=== PATIENT | female | born 1960 | race Caucasian/White ===

== ENCOUNTER → 2018-01-17 23:55 | Outpatient (CLI) | payer OTHER ==
[2015-10-06 09:27] VITALS: BMI 23.2
== END | disposition home or self-care (01) ==
LOC: D.MAMMO 14:30
DX: Z12.31 Encounter for screening mammogram for malignant neoplasm of breast (principal)

== ENCOUNTER → 2018-07-07 08:20 | Outpatient (CLI) | payer OTHER ==
[2015-10-06 09:27] VITALS: BMI 23.2
== END | disposition home or self-care (01) ==
LOC: D.MRI 06-20 16:00
DX: M54.12 Radiculopathy, cervical region (principal)

== ENCOUNTER 2019-01-15 07:40 | Day surgery (SDC) | payer OTHER ==
[2019-01-14 09:49] LABS: HEMATOCRIT 37.7 % (36.0-48.0); HEMOGLOBIN 13.5 g/dL (12-16); MCH 32.1 pg (26.0-34.0); MCHC 35.8 g/dL (31.0-37.0); MCV 89.8 fL (80.0-100.0); MEAN PLATELET VOLUME 11.2 fL (7.4-10.4); RBC 4.2 10x6/uL (4.00-5.40); RDW 11.7 % (11.5-14.5); WBC 4.5 10x3/uL (4.8-10.8)
[2019-01-15] VITALS (14 sets, daily range): BP systolic 93–132; BP diastolic 50–79; BMI 23.5; BMI 22.9
[~2019-01-15 07:40] MED LIST: LIPITOR10 MG PO; MIRALAX17 GM PO; ZYLOPRIM100 MG PO
--- NOTE | 2019-01-15 15:40 | NUR ---
RECEIVED PATIENT AT THIS TIME. PT DROWSY BUT WAKES EASILY. HOOKED UP TO MONITOR. VSS. WILL CHECK ORDERS AND CONTINUE TO MONITOR
--- NOTE | 2019-01-15 17:00 | NUR ---
PT RESTING IN BED C CALL FLANNERY IN REACH. NO COMPLAINTS. FAMILY IN ROOM. AWAKE ALERT WITH VSS
--- NOTE | 2019-01-15 19:55 | NUR ---
REC'D AWAKE BUT DROWSY. INITIAL ASSESSMENT COMPLETED AND RECORDED PER FLOW SHEET. LUNGS CLEAR RIMA. INCISION TO BASE OF NECK, C/D/I, SLIGHT BRUISING NOTED. NO BLEEDING NOTED. L WRIST PIV PATENT WITH D5-1/2NS @ 50 ML/HR. RIMA SCDs IN PLACE. SB PER MONITOR. WILL MONITOR.
--- NOTE | 2019-01-15 22:00 | NUR ---
ATTEMPTED TO USE BEDPAN WITHOUT SUCCESS. HAD GIVEN METHOCARBOMOL AT THIS TIME IN ATTEMPT TO HELP RELAX, WAS RELUCTANT TO TAKE ANYTHING STRONGER OR THAT MAY BE RELATED TO TYLENOL W/CODEINE ALTHO ASSURED HER THAT HYDROCODONE DID NOT. VSS. WILL CONT TO MONITOR AND WITH PLAN OF CARE.
[2019-01-16] VITALS (13 sets, daily range): BP systolic 113–141; BP diastolic 62–80
--- NOTE | 2019-01-16 01:00 | NUR ---
RECEIVED PATIENT FROM RN, SLEEPING BUT OPENS EYES TO VERBAL COMMAND. [place]. DENIES PAIN AT THIS TIME. HR SR ON THE MONITOR, BP STABLE. AFEBRILE. LS CTA. RESP EVEN AND UNLABORED. ACTIVE BS X4. VOIDS IN BEDPAN. SKIN W/D/I. PATIENT PLEASANT AND COOPERATIVE. WILL MONITOR CLOSELY THROUGH OUT THE NIGHT.
--- NOTE | 2019-01-16 03:00 | NUR ---
REASSESSMENT COMPLETED, SEE FLOWSHEET. VSS. PATIENT RESTING COMFORTABLY. WILL CTM.
--- NOTE | 2019-01-16 05:00 | NUR ---
NO ACUTE CHANGES NOTED. VSS. PATIENT AWAKE, WATCHING TV. PLACED ON BEDPAN WITH MINIMAL ASSISTANCE, CLEAR YELLOW URINE NOTED. SEE I & O FLOWSHEET. SPOKE TO ON THE PHONE AND PROVIDED AN UPDATE. PATIENT PLEASANT AND COOPERATIVE. WILL CTM.
--- NOTE | 2019-01-16 07:34 | NUR ---
0700 PT RECIEVED ALERT AND ORIENTED ON ROOM AIR HR 50-60S SR, L ANTERIOR NECK INCISION CDI, R HAND PIV D5 1/2NS AT 50ML/HR, CONTINENT, CALL LIGHT WITHIN REACH, DENIES PAIN AND ALL NEEDS, WILL CONTINUE TO MONITOR
--- NOTE | 2019-01-16 11:44 | NUR ---
0900 ATE 75% BREAKFAST 1130 REPORT GIVEN TO Gina COOPER RN
--- NOTE | 2019-01-16 13:00 | NUR ---
D/C HOME, LEFT FA PIV DC'D WITH CATHETER INTACT, TO PERSONEL VEHICLE WITH SPOUSE, DISCHARGE INSTRUCTIONS AND APPOINTMENT GIVEN, SCRIPT FOR [facility] WRITTENT BY DR MCPHERSON AND GIVEN TO PATIENT, NO OTHER NEEDS AT THIS TIME
--- NOTE | 2019-05-07 14:03 | OP ---
PATIENT NAME: ISACC DELUNA MEDICAL RECORD: [id number] :58 LOCATION:[facility] ADMISSION DATE: SURGEON: TED TURCIOS MD DATE OF OPERATION: 01/15/2019 PREOPERATIVE DIAGNOSES: Osteophyte formation and disc herniation at C4-C5 and C5-C6 with C5 and C6 radiculopathies. POSTOPERATIVE DIAGNOSES: Osteophyte formation and disc herniation at C4-C5 and C5-C6 with C5 and C6 radiculopathies. PROCEDURE: Artificial disc replacement at C4-C5 and C5-C6 with Mobi-C artificial disc, removal of osteophytes. SURGEON: Ted Turcios MD DESCRIPTION AND TECHNIQUE: After induction of general endotracheal anesthesia, the patient was positioned supine on the operating room table with the cervical spine in a neutral position. Neck was prepped and draped in usual sterile fashion. Fluoroscopic x-ray and freer localized the C5 vertebral body. After infiltration of 100,000 epinephrine and 1% lidocaine, a transverse skin incision was carried out from the midline to the sternocleidomastoid muscle. The platysma was divided with sharp dissection with #[id number]. Using blunt and sharp dissection with Metzenbaum scissors, I proceeded in the avascular plane medial to the carotid sheath. The C4-C5 and C5-C6 interspaces were identified as well as the midline with fluoroscopic x-ray. A self-retaining retractor was placed deep to the longus colli muscles. [place] distracting pins were placed in the bodies of the C4, C5, C6. The disc space was incised. The disc material was removed with the pituitary rongeurs and curettes under distraction with [place] distracting pins. Posteriorly, osteophytes drilled away with a Midas-Yunior drill and a microscope. The posterior longitudinal ligament was removed at each level with Cloward rongeurs. Following this, the dura was decompressed well at both levels and appropriate size Mobi-C artificial cervical disc was placed at the disc space at C4-C5 and C5-C6. Good position of the hardware was confirmed with fluoroscopic x-ray and AP and lateral films. Meticulous hemostasis was maintained throughout the wound. Wound was irrigated with copious amounts of Ancef irrigant solution. The platysma and subdermal layer were closed with interrupted 3-0 Vicryl suture. The skin was reapproximated with Steri-Strips and benzoin. A sterile dressing was applied to the wound. The patient was awakened in good condition and taken to recovery. All counts reported as correct. Estimated blood loss was minimal. TRANSINT:[id number] Voice Confirmation ID: [id number] DOCUMENT ID: [id number] TED TURCIOS MD at 1403 CC: [id number] DICTATION DATE: 05/06/19 1337 VP DIGITAL MARKETING: 05/06/19 1422 [facility] 01/16/[address] [id number]
== END 2019-01-16 12:55 | disposition home or self-care (01) ==
LOC: D.ICU 07:40 → D.OPS 07:40 → D.PAN 09:45 → D.OPS 09:45 → D.ICU 15:30 → D.OPS 01-16 12:55
PROVIDERS: Anesthesiology; ATTEND Neurological Surgery
DX: M50.121 Cervical disc disorder at C4-C5 level with radiculopathy (principal); M50.123 Cervical disc disorder at C6-C7 level with radiculopathy; M25.78 Osteophyte, vertebrae

== ENCOUNTER 2020-11-18 15:00 | Outpatient (CLI) | payer OTHER ==
[2020-11-04 06:35] VITALS: BMI 22.9
[~2020-11-18 15:00] MED LIST changes: +DOXYCYCLINE HY100 M2 PO; +IPRATROPIUM BRO30 M1 NASAL; +PROBIOTIC1 EAC1 PO; +STOOL SOFTENER100 M1 PO; +VITAMIN B-121000 MCG PO; +VITAMIN D50000 UNI1 PO; +VITAMIN K PO; +ZYRTEC10 MG PO; +[UNRECOGNIZED DRUG - OTHER] PO
== END 2020-11-18 23:59 | disposition home or self-care (01) ==
LOC: D.MAMMO 15:00
PROVIDERS: ATTEND Family Medicine
DX: Z12.31 Encounter for screening mammogram for malignant neoplasm of breast (principal)